=== PATIENT | male | born 1975 | race African-American/Black ===

== ENCOUNTER 2019-08-03 03:33 | Inpatient (IN) | payer OTHER ==
[~2019-08-03] VITALS: Ht 185.4 cm; Wt 87.6 kg
[2019-08-03] MEDS ORDERED: MethylPREDNISolone SOD SUCC 125 MG/2 ML VIAL ONE (03:43)
[2019-08-03] MEDS ORDERED: ETOMIDATE 2 MG/ML 10 ML VIAL IVP ONE (03:45)
[2019-08-03] MEDS ORDERED: IPRATROPIUM BROMIDE 0.5 MG/2.5 ML NEB SOLUTION NEB ONE (03:45)
[2019-08-03] MEDS ORDERED: MethylPREDNISolone SOD SUCC 125 MG/2 ML VIAL IVP ONE (03:45)
[2019-08-03] MEDS ORDERED: ALBUTEROL SULFATE 5 MG/ML 20 ML NEB SOLN [BULK] NEB ONE (03:45)
[2019-08-03] MEDS ORDERED: MAGNESIUM SULFATE 2 GM/WATER 50 ML IV ONE (03:45)
[2019-08-03] MEDS ORDERED: ROCURONIUM BROMIDE 10 MG/ML 5 ML VIAL IVP ONE (03:45)
[2019-08-03] MEDS ORDERED: ALBU8.5H8 IH (04:03)
[2019-08-03] MEDS ORDERED: SALMH IH (04:12)
[2019-08-03 04:16] LABS: ABG A-A DIFF O2 330.8 mmHg (10-20.0); ABG BASE EXCESS -18.1 mmol/L (-2.0-3.0); ABG CARBOXYHEMOGLOBIN 1.3 % (0.0-1.5); ABG HCO3 10.8 mmol/L (22.0-26.0); ABG METHEMOGLOBIN 0.2 % (0.0-1.5); ABG OXYGEN CONTENT 21.9 mL/dL (15.0-23.0); ABG OXYGEN SATURATION 99.4 % (95.0-98.0); ABG OXYHEMOGLOBIN 97.9 % (94.0-100.0); ABG PCO2 72 mmHg (35-45); ABG PH 6.921 (7.35-7.450); ABG TOTAL HEMOGLOBIN 15.4 G/dL (12.0-18.0); PO2, ARTERIAL BG 310.1 mmHg (88.0-96.0); SITE, BLOOD GAS LFT RADIAL; SOURCE, BLOOD GAS ARTERIAL; TEMPERATURE, FAHRENHEIT, BG 98.6 FAHREN (96.0-98.6)
[2019-08-03 04:17] LABS: O2 DEVICE,BLOOD GAS VENTILATOR (ROOM AIR); PEEP,BG 5 cm H2O; VT, ABG 500 ml
[2019-08-03 04:21] LABS: GLUCOSE,POINT OF CARE 312 MG/DL (70-110)
[2019-08-03 04:22] LABS: BASOPHILS % (AUTO) 0.7 % (0.0-2.0); EOSINOPHILS % (AUTO) 5.6 % (1.0-6.0); HEMATOCRIT 46.3 % (41-53); HEMOGLOBIN 14.7 g/dL (13.5-17.5); LYMPHOCYTES # (AUTO) 4.2 K/uL (1.0-4.8); MEAN CORPUSCULAR HEMOGLOBIN 26.9 pg (26.0-34.0); MEAN CORPUSCULAR HGB CONC 31.8 G/dL (31.0-37.0); MEAN CORPUSCULAR VOLUME 85 fL (80-100); MONOCYTES # (AUTO) 0.9 K/uL (0.1-1.0); MONOCYTES % (AUTO) 8.9 % (2.0-9.0); NEUTROPHILS # (AUTO) 4.3 K/uL (1.8-7.7); NEUTROPHILS % (AUTO) 42.8 % (40.0-70.0); PLATELET COUNT (AUTO) 217 K/uL (150-450); RED BLOOD CELL COUNT(AUTO) 5.48 MIL/uL (4.50-5.90)
[2019-08-03 04:29] LABS: APPEARANCE,URINE CLEAR (CLEAR); BILIRUBIN,URINE NEGATIVE (NEGATIVE); GLUCOSE, URINE (UA) 500 mg/dL (NEGATIVE); KETONES,URINE NEGATIVE (NEGATIVE); LEUKOCYTE ESTERASE ,URINE NEGATIVE (NEGATIVE); NITRATE,URINE NEGATIVE (NEGATIVE); OCCULT BLOOD,URINE MODERATE (NEGATIVE); PH,URINE 6.5 (5.0-8.0); PROTEIN,URINE SEE CONFIRM (NEGATIVE); UROBILINOGEN,URINE 0.2 mg/dL (<=1.0)
[2019-08-03 04:31] LABS: CALCIUM, TOTAL 7.8 mg/dL (8.8-10.5); CREATININE 1.64 mg/dL (0.60-1.30); POTASSIUM 4.6 mmol/L (3.5-5.1)
[2019-08-03 04:36] LABS: BACTERIA,URINE None Seen /HPF (None Seen)
[2019-08-03 04:37] LABS: SQUAMOUS EPITHELIAL CELL,UR Rare /LPF (None Seen); SULFOSALICYLIC ACID,URINE 4+ (Negative)
[2019-08-03 04:38] LABS: COARSE GRANULAR CASTS,URINE 0-2 /LPF (None Seen); FINE GRANULAR CASTS,URINE 0-2 /LPF (None Seen)
[2019-08-03 04:56] LABS: ALBUMIN 3.4 g/dL (3.4-5.0); BILIRUBIN,TOTAL 0.3 mg/dL (0.1-1.0); TOTAL PROTEIN, SERUM 7.1 g/dL (6.4-8.2)
[2019-08-03 05:00] LABS: INFLUENZA TYPE A NEGATIVE FOR TYPE A (NEGATIVE); INFLUENZA TYPE B NEGATIVE FOR TYPE B (NEGATIVE)
[2019-08-03] MEDS ORDERED: ACETAMINOPHEN 325 MG TABLET PO PRN (05:00)
[2019-08-03] MEDS ORDERED: ONDANSETRON HCL 4 MG/2 ML VIAL IVP PRN (05:00)
[2019-08-03] MEDS ORDERED: 0.9% SODIUM CHLORIDE 10 ML SYRINGE IVP PRN ×2 (05:00→05:15)
[2019-08-03] MEDS ORDERED: MAGNESIUM OXIDE 400 MG TABLET PO PRN (05:15)
[2019-08-03] MEDS ORDERED: POTASSIUM CHLORIDE 20 MEQ ER TABLET PO PRN (05:15)
[2019-08-03] MEDS ORDERED: MAGNESIUM SULFATE 4 GM/WATER 100 ML IV PRN (05:15)
[2019-08-03] MEDS ORDERED: MAGNESIUM SULFATE 2 GM/WATER 50 ML IV PRN (05:15)
[2019-08-03] MEDS ORDERED: POTASSIUM CHL 10 MEQ/WATER 50 ML IV PRN (05:15)
[2019-08-03] MEDS: PROPOFOL 1000 MG/ISO-OSM 100 ML IV PRN ×7 (05:21→23:24)
[2019-08-03] MEDS ORDERED: MIDAZOLAM HCL 2 MG/2 ML VIAL IVP ONE (05:45)
[2019-08-03] MEDS ORDERED: MIDAZOLAM HCL 100 MG in DEXTROSE 5%-WATER 180 ML IV PRN (05:50)
[2019-08-03] MEDS ORDERED: FentaNYL CITRATE PF 500 MCG in DEXTROSE 5%-WATER 90 ML IV PRN (05:50)
[2019-08-03] MEDS: CefTRIAXone 1 GM/DEXTROSE 50 ML IV SCH (05:54)
[2019-08-03] MEDS: AZITHROMYCIN 500 MG/NS 250 ML IV SCH (06:00)
[2019-08-03 06:34] VITALS: BP 144/73
[2019-08-03] MEDS ORDERED: ALBUTEROL SULFATE 2.5 MG/0.5 ML NEB SOLUTION NEB SCH (07:00)
[2019-08-03] MEDS ORDERED: IPRATROPIUM BROMIDE 0.5 MG/2.5 ML NEB SOLUTION NEB SCH (07:00)
[2019-08-03] MEDS: IPRATROPIUM BROMIDE 0.5 MG/2.5 ML NEB SOLUTION NEB SCH ×3 (07:25→19:47)
[2019-08-03] MEDS: ALBUTEROL SULFATE 2.5 MG/0.5 ML NEB SOLUTION NEB SCH ×3 (07:26→19:47)
[2019-08-03 08:00] VITALS: BP 122/53
[2019-08-03] MEDS ORDERED: MAGNESIUM SULFATE 3 GM in DEXTROSE 5%-WATER 100 ML IV ONE (08:00)
[2019-08-03] MEDS ORDERED: DEXTROSE 50%-WATER 25 GM/50 ML SYRINGE IVP PRN (08:00)
[2019-08-03 09:24] LABS: ABG A-A DIFF O2 85.1 mmHg (10-20.0); ABG BASE EXCESS -11.2 mmol/L (-2.0-3.0); ABG CARBOXYHEMOGLOBIN 0.7 % (0.0-1.5); ABG HCO3 16.2 mmol/L (22.0-26.0); ABG OXYGEN CONTENT 20.5 mL/dL (15.0-23.0); ABG OXYGEN SATURATION 98.7 % (95.0-98.0); ABG PCO2 41 mmHg (35-45); ABG PH 7.219 (7.35-7.450); ABG TOTAL HEMOGLOBIN 14.7 G/dL (12.0-18.0); PO2, ARTERIAL BG 152.5 mmHg (88.0-96.0); SOURCE, BLOOD GAS ARTERIAL; TEMPERATURE, FAHRENHEIT, BG 98.6 FAHREN (96.0-98.6)
[2019-08-03 09:25] LABS: O2 DEVICE,BLOOD GAS VENTILATOR (ROOM AIR); SITE, BLOOD GAS RT RADIAL
[2019-08-03 09:26] LABS: PEEP,BG 5 cm H2O; VT, ABG 550 ml
[2019-08-03 10:42] LABS: MAGNESIUM 2.3 mg/dL (1.80-2.40)
[2019-08-03] MEDS: RINGERS SOLUTION,LACTATED 1,000 ML IV SCH ×2 (10:56→17:30)
[2019-08-03] MEDS: BUDESONIDE 0.5 MG/2 ML NEB SOLUTION NEB SCH ×2 (10:58→19:47)
[2019-08-03] MEDS: PANTOPRAZOLE SODIUM 40 MG/VIAL IVP SCH (11:18)
[2019-08-03 12:00] VITALS: BP 113/58
[2019-08-03 12:37] LABS: LACTIC ACID 8.4 mmol/L (0.4-2.0)
[2019-08-03 15:18] LABS: AMPHET/METH SCREEN,URINE NEGATIVE (NEGATIVE); BARBITURATE SCREEN, URINE NEGATIVE (NEGATIVE); BENZODIAZEPINES SCREEN,URINE POSITIVE (NEGATIVE); CANNABINOID SCREEN,URINE POSITIVE (NEGATIVE); COCAINE SCREEN,URINE NEGATIVE (NEGATIVE); METHADONE SCREEN, URINE NEGATIVE (NEGATIVE); OPIATE SCREEN,URINE NEGATIVE (NEGATIVE)
[2019-08-03 15:19] LABS: PHENCYCLIDINE SCREEN,URINE NEGATIVE (NEGATIVE)
[2019-08-03 16:00] VITALS: BP 124/67
[2019-08-03] MEDS: NICOTINE 7 MG/24 HOUR PATCH TD SCH (17:29)
[2019-08-03 17:36] LABS: GLUCOSE,POINT OF CARE 109 MG/DL (70-110)
[2019-08-03] MEDS ORDERED: ETOMIDATE 2 MG/ML 10 ML VIAL IV ONE ×2 (17:37→17:39)
[2019-08-03] MEDS ORDERED: ROCURONIUM BROMIDE 10 MG/ML 5 ML VIAL IV ONE (17:37)
[2019-08-03] MEDS ORDERED: VECURONIUM BROMIDE 10 MG/VIAL IV ONE (17:39)
[2019-08-03 20:00] VITALS: BP 130/92
[2019-08-03] MEDS: MethylPREDNISolone SOD SUCC 125 MG/2 ML VIAL IVP SCH (20:12)
[2019-08-03] MEDS ORDERED: SODIUM CHLORIDE 0.9% 250 ML IV ONE (20:19)
[2019-08-03] MEDS: INSULIN LISPRO 100 UNITS/ML SQ PRN (23:19)
[2019-08-04] VITALS: BP 125/79
[2019-08-04] MEDS: IPRATROPIUM BROMIDE 0.5 MG/2.5 ML NEB SOLUTION NEB SCH ×4 (02:00→19:53)
[2019-08-04] MEDS: ALBUTEROL SULFATE 2.5 MG/0.5 ML NEB SOLUTION NEB SCH ×4 (02:00→19:53)
[2019-08-04] MEDS: RINGERS SOLUTION,LACTATED 1,000 ML IV SCH (02:26)
[2019-08-04] MEDS: PROPOFOL 1000 MG/ISO-OSM 100 ML IV PRN ×3 (02:27→10:18)
[2019-08-04 04:00] VITALS: BP 115/75
[2019-08-04] MEDS: CefTRIAXone 1 GM/DEXTROSE 50 ML IV SCH (04:21)
[2019-08-04 05:12] LABS: BASOPHILS % (AUTO) 0.2 % (0.0-2.0); EOSINOPHILS % (AUTO) 0 % (1.0-6.0); HEMATOCRIT 44.9 % (41-53); HEMOGLOBIN 14.8 g/dL (13.5-17.5); LYMPHOCYTES # (AUTO) 0.7 K/uL (1.0-4.8); LYMPHOCYTES % (AUTO) 4.3 % (22.0-44.0); MEAN CORPUSCULAR HEMOGLOBIN 26.8 pg (26.0-34.0); MEAN CORPUSCULAR VOLUME 81 fL (80-100); MONOCYTES # (AUTO) 1.2 K/uL (0.1-1.0); MONOCYTES % (AUTO) 6.7 % (2.0-9.0); NEUTROPHILS # (AUTO) 15.5 K/uL (1.8-7.7); NEUTROPHILS % (AUTO) 88.8 % (40.0-70.0); PLATELET COUNT (AUTO) 196 K/uL (150-450); RED BLOOD CELL COUNT(AUTO) 5.52 MIL/uL (4.50-5.90); RED CELL DISTRIBUTION WIDTH 13.8 % (11.5-14.5)
[2019-08-04] MEDS: AZITHROMYCIN 500 MG/NS 250 ML IV SCH (05:25)
[2019-08-04 05:27] LABS: ALANINE AMINOTRANSFERASE 58 U/L (12-78); ALBUMIN 3.7 g/dL (3.4-5.0); ALKALINE PHOSPHATASE 84 U/L (46-116); ANION GAP 6 mmol/L (8-16); ASPARTATE AMINOTRANSFERASE 44 U/L (15-37); BILIRUBIN,TOTAL 0.6 mg/dL (0.1-1.0); CARBON DIOXIDE 28 mmol/L (22-29); CHLORIDE 108 mmol/L (98-107); CREATININE 1.25 mg/dL (0.60-1.30); GLOMERULAR FILTR. RATE CALC > 60 mL/min (>60); GLUCOSE,RANDOM 136 mg/dL (70-110); POTASSIUM 5.2 mmol/L (3.5-5.1); SODIUM SERUM 142 mmol/L (136-145); TOTAL PROTEIN, SERUM 7.5 g/dL (6.4-8.2); UREA NITROGEN, BLOOD 8 mg/dL (7-18)
[2019-08-04] MEDS: INSULIN LISPRO 100 UNITS/ML SQ PRN ×2 (05:35→18:23)
[2019-08-04 06:51] LABS: GLUCOSE,POINT OF CARE 97 MG/DL (70-110)
[2019-08-04 07:05] LABS: GLUCOSE,POINT OF CARE 144 MG/DL (70-110)
[2019-08-04 07:06] LABS: GLUCOSE,POINT OF CARE 115 MG/DL (70-110)
[2019-08-04 08:00] VITALS: BP 128/79
[2019-08-04] MEDS: BUDESONIDE 0.5 MG/2 ML NEB SOLUTION NEB SCH ×2 (08:08→19:53)
[2019-08-04] MEDS: PANTOPRAZOLE SODIUM 40 MG/VIAL IVP SCH (08:13)
[2019-08-04] MEDS: NICOTINE 7 MG/24 HOUR PATCH TD SCH (08:14)
[2019-08-04] MEDS: MethylPREDNISolone SOD SUCC 125 MG/2 ML VIAL IVP SCH (08:14)
[2019-08-04] MEDS ORDERED: ENOXAPARIN SODIUM 100 MG/ML PF SYRINGE SQ ONE (10:15)
[2019-08-04] MEDS: SODIUM CHLORIDE 0.45% 1,000 ML IV SCH ×2 (10:21→18:26)
[2019-08-04 12:00] VITALS: BP 148/68
[2019-08-04] MEDS: MethylPREDNISolone SOD SUCC 40 MG/ML VIAL IVP SCH ×2 (12:36→18:25)
[2019-08-04 14:10] LABS: GLUCOSE,POINT OF CARE 129 MG/DL (70-110)
[2019-08-04 14:28] LABS: ABG A-A DIFF O2 102.8 mmHg (10-20.0); ABG BASE EXCESS 1.1 mmol/L (-2.0-3.0); ABG CARBOXYHEMOGLOBIN 0.9 % (0.0-1.5); ABG HCO3 25.5 mmol/L (22.0-26.0); ABG OXYGEN CONTENT 21.7 mL/dL (15.0-23.0); ABG OXYHEMOGLOBIN 98.1 % (94.0-100.0); ABG PCO2 40 mmHg (35-45); ABG PH 7.425 (7.35-7.450); ABG TOTAL HEMOGLOBIN 15.6 G/dL (12.0-18.0); CPAP, BG 0 cm H2O; O2 DEVICE,BLOOD GAS VENTILATOR (ROOM AIR); PO2, ARTERIAL BG 136.6 mmHg (88.0-96.0); PRESSURE SUPPORT, BG 8 cm H2O; SITE, BLOOD GAS RT RADIAL; SOURCE, BLOOD GAS ARTERIAL; SPONTANEOUS VT, BG 550 ml; TEMPERATURE, FAHRENHEIT, BG 98.6 FAHREN (96.0-98.6); VENT MODE, BG SPONTANEOUS (ROOM AIR)
[2019-08-04 16:00] VITALS: BP 127/81
[2019-08-04 18:32] LABS: GLUCOSE,POINT OF CARE 138 MG/DL (70-110)
[2019-08-04] MEDS ORDERED: SODIUM CHLORIDE 0.9% 250 ML IV ONE (19:35)
[2019-08-04 20:00] VITALS: BP 126/74
[2019-08-04] MEDS: ALBUTEROL SULFATE 2.5 MG/0.5 ML NEB SOLUTION NEB PRN (21:42)
[2019-08-04] MEDS: IPRATROPIUM BROMIDE 0.5 MG/2.5 ML NEB SOLUTION NEB PRN (21:43)
[2019-08-05] VITALS: BP 148/85
[2019-08-05] MEDS: MethylPREDNISolone SOD SUCC 40 MG/ML VIAL IVP SCH ×3 (00:32→12:56)
[2019-08-05] MEDS: SODIUM CHLORIDE 0.45% 1,000 ML IV SCH ×2 (01:50→11:15)
[2019-08-05] MEDS: IPRATROPIUM BROMIDE 0.5 MG/2.5 ML NEB SOLUTION NEB SCH ×3 (02:33→14:42)
[2019-08-05] MEDS: ALBUTEROL SULFATE 2.5 MG/0.5 ML NEB SOLUTION NEB SCH ×3 (02:34→14:42)
[2019-08-05 04:00] VITALS: BP 112/62
[2019-08-05] MEDS: CefTRIAXone 1 GM/DEXTROSE 50 ML IV SCH (05:54)
[2019-08-05] MEDS: AZITHROMYCIN 500 MG/NS 250 ML IV SCH (06:03)
[2019-08-05] MEDS: INSULIN LISPRO 100 UNITS/ML SQ PRN (07:03)
[2019-08-05 07:20] LABS: GLUCOSE,POINT OF CARE 198 MG/DL (70-110)
[2019-08-05 07:21] LABS: GLUCOSE,POINT OF CARE 108 MG/DL (70-110)
[2019-08-05] MEDS: BUDESONIDE 0.5 MG/2 ML NEB SOLUTION NEB SCH (07:30)
[2019-08-05 08:00] VITALS: BP 124/96
[2019-08-05] MEDS: NICOTINE 7 MG/24 HOUR PATCH TD SCH (09:31)
[2019-08-05] MEDS: PANTOPRAZOLE SODIUM 40 MG/VIAL IVP SCH (09:31)
[2019-08-05 11:49] LABS: GLUCOSE,POINT OF CARE 124 MG/DL (70-110)
[2019-08-05 12:00] VITALS: BP 122/68
[2019-08-05] MEDS: ALBUTEROL SULFATE 2.5 MG/0.5 ML NEB SOLUTION NEB PRN (12:45)
[2019-08-05] MEDS: IPRATROPIUM BROMIDE 0.5 MG/2.5 ML NEB SOLUTION NEB PRN (12:45)
== END 2019-08-05 15:45 | disposition short-term general hospital (02) | DRG 208 ==
LOC: EMS 03:33 → ICU 05:40
PROVIDERS: ADMIT Internal Medicine; ATTEND Internal Medicine
PROC: 5A1945Z Respiratory Ventilation, 24-96 Consecutive Hours (ICD-10-PCS; principal; 2019-08-03)
PROC: 0BH17EZ Insertion of Endotracheal Airway into Trachea, Via Natural or Artificial Opening (ICD-10-PCS; 2019-08-03)
DX: J96.02 Acute respiratory failure with hypercapnia (principal); J45.901 Unspecified asthma with (acute) exacerbation; N17.9 Acute kidney failure, unspecified; E87.2 Acidosis; J45.902 Unspecified asthma with status asthmaticus; E11.9 Type 2 diabetes mellitus without complications; F17.210 Nicotine dependence, cigarettes, uncomplicated; J96.01 Acute respiratory failure with hypoxia
CPT/HCPCS: 36600; 80307; 82805; 83605; 83735; 84145; 87040; 87081; 87804; 93005; 94002; 94003; 94640; 94644; 99291; C9113; G0378; J0456; J0696; J1650; J2250; J2704; J2920; J2930; J3010; J3475; J3490; J7050; J7060; J7120